=== PATIENT | female | born 1950 | race Caucasian/White ===

== ENCOUNTER → 2016-10-09 | Outpatient (CLI) | payer OTHER ==
[~2016-10-09] MED LIST: BACLOFEN10 MG PO; CELEXA PO; CIPRO PO; DARVOCET-N 1001 TAB PO; ESTRASORB PO; MEDROL4 MG/DOSE- PO; PHENERGAN PO; VICODIN 5/500 T1 TAB PO
--- NOTE | ~2016-10-09 | EKG ---
PATIENT: EDY FORD UNIT #: [id number] Ventricular Rate: 73 BPM Atrial Rate: 73 BPM P-R Interval: 136 ms QRS Duration: 78 ms Q-T Interval: 400 ms QTC Calculation(Bezet): 440 ms P Hiller: 43 degrees Calculated R Hiller: -8 degrees Calculated T Hiller: 39 degrees Diagnosis Line: Sinus rhythm with occasional Premature ventricular Diagnosis Line: complexes Diagnosis Line: Minimal voltage criteria for LVH, may be normal Diagnosis Line: variant Diagnosis Line: Nonspecific ST abnormality Diagnosis Line: Abnormal ECG Diagnosis Line: When compared with ECG of 21-SEP-2010 15:40, Diagnosis Line: Premature ventricular complexes are now Present Diagnosis Line: Nonspecific T wave abnormality no longer evident Diagnosis Line: in Lateral leads Diagnosis Line: Confirmed by REBEL CRESPO MD ([id number]) on Diagnosis Line: 10/09/2016 9:39:22 PM INTERPRETING MD: JULIANO
[2016-10-09 16:05] LABS: BASOPHIL% 0.3 % (0-2.5); EOSINOPHIL# 0.1 X10e3 (0-0.7); EOSINOPHIL% 1.1 % (0.0-7.0); HEMOGLOBIN 14.3 gm/dL (12.0-16.0); LYMPHOCYTE# 3.9 X10e3 (1.0-3.5); MEAN CELL VOLUME 92.3 FL (83-96); MEAN CORPUSCULAR HEMOGLOBIN 30.1 PG (28-34); MEAN CORPUSCULAR HGB CONC 32.6 g/dL (30-36); MEAN PLATELET VOLUME 7.7 FL (6.5-11.5); MONOCYTE# 0.6 X10e3 (0-1.0); MONOCYTE% 5.2 % (3.0-12.0); NEUTROPHIL% 56.4 % (40-75); PLATELET COUNT 341 X10e3 (140-420); RED BLOOD COUNT 4.76 X10e (3.90-5.30); RED CELL DISTRIBUTION WIDTH 14.1 % (11.0-15.5); WHITE BLOOD COUNT 10.6 X10e3 (4.0-10.5)
[2016-10-09 16:06] LABS: DIFF IND NO
[2016-10-09 16:27] LABS: CALCIUM SERUM 9.3 mg/dL (8.4-10.2); CREATININE SERUM 0.7 mg/dL (0.6-1.4); GLOM FILT RATE Estimated 90.9 mL/min (>60); POTASSIUM 4.3 mmol/L (3.5-5.1)
== END | disposition home or self-care (01) ==
LOC: CLAB 15:42
PROVIDERS: Specialist
DX: Z01.818 Encounter for other preprocedural examination (principal); S73.109A Unspecified sprain of unspecified hip, initial encounter; M46.1 Sacroiliitis, not elsewhere classified
CPT/HCPCS: 36415; 80048; 85025; 93005